=== PATIENT | male | born 1940 | race Caucasian/White ===

== ENCOUNTER → 2018-11-20 | Outpatient (CLI) | payer MEDICARE, OTHER ==
[~2018-11-20] MED LIST: ASPI-482 PO; CARV25TA2 PO; CRESTOR20 MG PO; LORA-781 PO; MULT-208 PO; OLME1TAB23 PO; OMEP20TA63 PO; ROPI1TAB PO; UBID100C26 PO
--- NOTE | 2018-11-20 12:43 | KCIC ---
MRI Lumbar Spine without contrast History: Low back pain, previous surgery Technique: Multiplanar, multi sequential noncontrast MR imaging was performed of the lumbar spine. Comparison: February 23, 2015 Findings: Lumbar vertebral body stature is maintained. There is now interbody fusion L4-5. There is again advanced degenerative disc disease L5-S1, L3-4 and L2-3 and to lesser degree at L1-2, also degree of degenerative disc disease T11-12 and T12-L1. There is similar minimal posterior subluxation L5 relative S1, L3 relative L4, L1 relative L2. There is again degenerative endplate change greatest at L3-4 and L5-S1, to lesser degree at L2-3. There is increased L5-S1 endplate edema in interval, no fluid in the intervertebral disc space. There is other minimal endplate edema L3-4 and L2-3. Conus terminates at T12-L1. There is some heterogeneity of marrow signal probably component of scattered hemangiomas and foci of fatty marrow replacement. T12-L1: Neural foramina and spinal canal are adequate. There is negligible posterior disc osteophyte complex and protrusion. L1-L2: There is disc osteophyte complex and bulge superimposed on the posteriorly subluxed L1 vertebral body margin, now shallow protrusion in the far left lateral recess. There is somewhat increased mild narrowing of the far left lateral recess, again mild narrowing of the far right lateral recess. Neural foramina are adequate. L2-L3: There is again disc osteophyte complex and bulge/protrusion. There is again mild narrowing of the far lateral recesses left greater than right, mild attenuation of the thecal sac more centrally from posterior epidural lipomatosis. There is facet hypertrophic change. Neural foramina are overall adequate. L3-L4: There is again left laminectomy. There is again broad posterior disc osteophyte complex, near the ventral surfaces descending L4 nerve roots bilaterally overall unchanged. There is again fairly severe narrowing of the left neural foramen by facet degenerative change and disc osteophyte complex with contact exiting left L3 nerve root in the neural foramen and extraforaminal region. Right neural foramen is adequate, disc osteophyte complex near the extraforaminal right L3 nerve root, no significant displacement.. L4-L5: There are again laminectomy defects greater on the right. There is minimal posterior osteophytic bridging. Spinal canal is overall adequate. There is [id number] narrowing of the left neural foramen by facet osteophytes as well as inferior osteophytes. There is also moderate narrowing of the right neural foramen. L5-S1: There is again broad disc osteophyte complex and probably partially calcified bulge/protrusion. There is indentation upon the ventral thecal sac greater in the left lateral recess, overall mild left lateral recess stenosis. There is right laminectomy defect. There is moderate narrowing of the left neural foramen. There is severe narrowing of the right neural foramen with contact exiting right L5 nerve root, narrowing due to disc osteophyte complex and facet degenerative change. Impression: 1. Comparing with the 2015 exam, there is now interbody fusion L4-5. There is again multilevel lumbar degenerative disc disease and spondylosis, L1-2 least affected. There is multilevel mild abnormal alignment. There is again mild left lateral recess stenosis L5-S1. Disc osteophyte complex is again near the ventral surfaces descending L4 nerve roots at L3-4, greater on the left. There is mild narrowing of the far lateral recesses greater on the left at L2-3, also mild narrowing of the far lateral recesses at L1-2. There is endplate edema greatest at L5-S1 likely reactive/degenerative in etiology. 2. There is multilevel lumbar neural foramina compromise as described, more significant narrowing on the right at L5-S1 and on the left at L3-4, to a somewhat lesser degree on the left at L4 L5 S1. Electronically signed by: Bakari Browne MD (11/20/2018 12:38 PM) [facility]
== END | disposition home or self-care (01) ==
LOC: KCIC MRI 10:28
PROVIDERS: ATTEND Family Medicine
DX: M51.36 Other intervertebral disc degeneration, lumbar region (principal); M47.816 Spondylosis without myelopathy or radiculopathy, lumbar region; M48.07 Spinal stenosis, lumbosacral region
CPT/HCPCS: 72148

== ENCOUNTER → 2018-12-30 | Outpatient (CLI) | payer MEDICARE ==
[~2018-12-30] MED LIST changes: +ACET500T68 PO; +CETI10TA16 PO; +DOCU-109 PO; +LISI-334 PO; +TRAM50TA PO
--- NOTE | 2018-12-30 17:36 | KCIC ---
MRI of the cervical spine without contrast 12/30/2018 CLINICAL HISTORY: Neck pain with unsteadiness. History of cervical spine surgery. TECHNIQUE: Unenhanced T1-weighted, T2-weighted and inversion recovery sagittal and gradient echo and T2-weighted axial images of the cervical spine were obtained. FINDINGS: Comparison study is dated 02/23/2015. Mild lateral curvature of the cervical spine is seen convex to the right. There is straightening of the normal cervical lordosis. The patient is post anterior discectomy and fusion using an anterior plate, bone screws and bone graft material at C3-4. Degenerative signal changes and loss of height are seen involving the remaining discs of the cervical spine. Degenerative signal changes are seen within the marrow surrounding these discs. No area of abnormal signal intensity is seen involving the cervical spinal cord. At the C2-3 disc space there is a mild generalized disc bulge. Degenerative changes are seen involving the uncovertebral and facet joints, right greater than left. These findings do not result in significant central spinal canal stenosis. Mild right neural foraminal stenosis is seen. The left neural foramen is patent. At the C3-4 level degenerative changes are seen involving the uncovertebral and facet joints, left greater than right. These findings do not result in significant central spinal canal stenosis. Mild to moderate left neural foraminal stenosis is seen. At the C4-5 disc space there is a mild generalized disc bulge. Degenerative changes are seen involving the uncovertebral and facet joints bilaterally. These findings do not result in significant central spinal canal or neural foraminal stenosis. At the C5-6 disc space there is a moderate generalized disc bulge. Degenerative changes are seen involving the uncovertebral and facet joints, left greater than right. These findings efface the anterior and posterior CSF resulting in mild central spinal canal stenosis without evidence of cord impingement. Moderate to severe left greater than right neural foraminal stenosis is seen. At the C6-7 disc space there is a mild generalized disc bulge. Degenerative changes are seen involving the uncovertebral and facet joints bilaterally. These findings do not result in significant central spinal canal or neural foraminal stenosis. At the C7-T1 disc space there is a minimal generalized disc bulge. Degenerative changes are seen involving the uncovertebral and facet joints bilaterally. These findings do not result in significant central spinal canal or neural foraminal stenosis. IMPRESSION: 1. Post anterior discectomy and fusion at C3-4. 2. Degenerative changes are seen throughout the cervical spine. These findings result in mild central spinal canal stenosis without evidence of cord impingement at C5-6. Mild right neural foraminal stenosis is seen at C2-3. Mild to moderate left neural foraminal stenosis is seen at C3-4. Moderate to severe left greater than right neural foraminal stenosis is seen at C5-6. Electronically signed by: Jonathan Castro MD (12/30/2018 5:34 PM) [facility]
== END | disposition home or self-care (01) ==
LOC: KCIC MRI 15:36
PROVIDERS: ATTEND Neurological Surgery
DX: M48.02 Spinal stenosis, cervical region (principal); Z88.5 Allergy status to narcotic agent; Z88.2 Allergy status to sulfonamides; Z88.8 Allergy status to other drugs, medicaments and biological substances
CPT/HCPCS: 72141

== ENCOUNTER → 2019-03-11 | Outpatient (CLI) | payer MEDICARE ==
--- NOTE | 2019-03-11 13:07 | EKG ---
[facility] [address] [place] [address] Test Date: 2019-03-11 Test Time: 13:06:47 Pat Name: CARMEN SÁNCHEZ Department: Room: Gender: M Taxicab Dispatcher: K : [id number] Requested By: MIGUEL SMITH Order Number: [id number] Reading MD: Jt Bronson MD Measurements Intervals [place] Rate: 51 P: 39 GA: 142 QRS: 40 QRSD: 88 T: 58 QT: 406 QTc: 376 Interpretive Statements SINUS RHYTHM Electronically Signed On 03-16-2019 13:18:12 CDT by Jt Bronson MD
[2019-03-11 13:32] LABS: BASO % 1 % (0-3); EOS # 0.3 x10^3/uL (0.0-0.7); EOS % 4 % (0-3); HEMATOCRIT 42.2 % (39.0-53.0); HEMOGLOBIN 14.6 g/dL (13.0-17.5); LYMPH # 1.7 x10^3/uL (1.0-4.8); LYMPH % 25 % (24-48); MEAN CORPUSCULAR HEMOGLOBIN 32 pg (25-35); MEAN CORPUSCULAR HGB CONC 35 g/dL (31-37); MEAN CORPUSCULAR VOLUME 92 fL (79-100); MONO # 0.5 x10^3/uL (0.0-1.1); MONO % 7 % (0-9); NEUT # 4.1 x10^3uL (1.8-7.7); NEUT % 63 % (31-73); PLATELET COUNT 186 x10^3/uL (140-400); RED CELL DISTRIBUTION WIDTH 13.5 % (11.5-14.5); WHITE BLOOD COUNT 6.6 x10^3/uL (4.0-11.0)
[2019-03-11 13:56] LABS: ALBUMIN/GLOBULIN RATIO 1.3 (1.0-1.7); CALCIUM 9.5 mg/dL (8.5-10.1); CREATININE 1.4 mg/dL (0.7-1.3); POTASSIUM 4.6 mmol/L (3.5-5.1); TOTAL BILIRUBIN 0.4 mg/dL (0.2-1.0); TOTAL PROTEIN 7.1 g/dL (6.4-8.2)
== END | disposition home or self-care (01) ==
LOC: SURGPAT 11:49
PROVIDERS: ATTEND Neurological Surgery
DX: Z01.818 Encounter for other preprocedural examination (principal); M48.062 Spinal stenosis, lumbar region with neurogenic claudication; M54.16 Radiculopathy, lumbar region
CPT/HCPCS: 36415; 80053; 85025; 87641; 93005

== ENCOUNTER 2019-03-20 08:17 | Observation (INO) | payer MEDICARE ==
--- NOTE | 2019-03-19 16:27 | PREOP HP ---
DATE OF SERVICE: 03/20/[address] Haris Hughes [address]ating for Dr. Arun Smith. HISTORY OF PRESENT ILLNESS: The patient is a pleasant 78-year-old who underwent an anterior cervical diskectomy and fusion in 2010 and then lumbar microsurgery in 2010. He also underwent decompression and fusion in 2005. His current problem is low back pain and pain, which radiates into his right buttock and posterior thigh. There is also an element of inferior right flank pain with this. The problem has been present for about one year. It began spontaneously. He rates his pain as a 7/10. Standing, walking and bending increase his pain. He says occasionally, he can lose his balance and stumble. He takes Tylenol for pain. He had physical therapy at [facility] in [place] without benefit. He does use a cane now. PAST MEDICAL HISTORY: Arthritis, hypertension, chest pain. PAST SURGICAL HISTORY: Right knee surgery, lumbar surgery 04/2006, an ACDF in 02/2011, lumbar surgery 07/2011, sinus surgery, cataract surgery in 2011. FAMILY HISTORY: Heart disease and [place], hypertension, aneurysm. SOCIAL HISTORY: Retired. . Nonsmoker. Does not drink alcohol. ALLERGIES: TO CODEINE, SULFA AND NIACIN. CURRENT MEDICATIONS: Crestor, aspirin, Coreg, coenzyme Q10, ropinirole, omeprazole, multivitamin. ALLERGIES: LISINOPRIL, TRAMADOL, TYLENOL. REVIEW OF SYSTEMS: A 12-point review of systems was obtained and is noncontributory except that mentioned above. PHYSICAL EXAMINATION: NEUROSURGERY EXAMINATION: GENERAL APPEARANCE: Alert, pleasant, no acute distress. HEAD: Normocephalic and atraumatic. SKIN: Warm and dry. Well-healed lumbar incision. MUSCULOSKELETAL: Lumbar paraspinal muscle bulk is normal, restricted range of motion of the lumbar spine, [id number] tenderness of lower lumbar spine with palpation, normal range of motion of the lower extremities bilaterally. EXTREMITIES: No clubbing, cyanosis or edema. NEUROLOGIC: Alert and oriented x 3, normal recent and remote memory, strength 5/5 in bilateral lower extremities, sensory was intact to light touch in bilateral lower extremities, reflexes were present and symmetric in lower extremities bilaterally, negative straight leg raising bilaterally, ambulates with a cane. IMAGING: Reviewed. I reviewed a lumbar MRI scan from 11/2018. On that study, there is interbody fusion at L4-L5. There are laminectomy defects at L3-L4, L4-L5 and L5-S1. At L5-S1 on the right, there is severe foraminal narrowing with evidence of compression on the right L5 root due to primarily disk osteophyte complex and facet hypertrophy. ASSESSMENT: 1. Radiculopathy, lumbosacral region. 2. Spinal stenosis, cervical region. 3. Spinal stenosis, lumbar region with neurogenic claudication. PLAN: With regard to his lumbar radiculopathy on the right, I feel it is most likely due to compression of the L5 root in the foramen at L5-S1. He is reporting increasing unsteadiness and I did review his MRI scan from 2015 of the cervical spine, which there was an area of stenosis below his previous cervical fusion. My concern is that this problem may have progressed and he is developing a cervical myelopathy. For that reason, a new cervical MRI scan should be performed. He will contact us when he would like to go forward with his lumbar surgery. We will make the arrangements. ARUN SMITH MD DR: JACOB/lilia JOB#: [id number] / [id number]
[~2019-03-20] VITALS: Ht 172.7 cm; Wt 74.8 kg
[~2019-03-20 08:17] MED LIST changes: +BACITRACIN 50,000 UNIT in IV NORMAL SALINE 1000ML BAG 1,000 ML IRR ONE; +BUPIVAC MPF-EPI 0.5%-1:200000 30 ML VIAL. ONE; -DOCU-109 PO; +GELATIN SPONGE SIZE 12-7MM SPONGE. ONE; +HYDROmorphone 2 MG/ML VIAL IV PRN; +IV RINGERS,LACTATED 1000ML 1,000 ML IV SCH; +KETOROLAC 60 MG/2 ML INJ FOR OR. ONE; +LIDOCAINE 1% PF 2 ML VIAL. ID PRN; +MORPHINE SULFATE 2 MG/ML VIAL. IV PRN; +ONDANSETRON PF 4 MG/2 ML VIAL. IV PRN; +PROCHLORPERAZINE 10 MG/2 ML VIAL. IV PRN; +THROMBIN TOPICAL 20,000 UNIT SPRAY.SYRN KIT TP ONE; +fentaNYL PF VIAL 100 MCG/2 ML VIAL IV PRN
[2019-03-20] MEDS ORDERED: PROPOFOL 100 ML IV ONE (08:22)
[2019-03-20] MEDS ORDERED: REMIFENTANIL 2 MG VIAL. IV ONE (09:27)
[2019-03-20] MEDS ORDERED: fentaNYL PF VIAL 100 MCG/2 ML VIAL ONE ×2 (09:27→14:14)
[2019-03-20] MEDS ORDERED: DESFLURANE > 120 MINUTES IH ONE (09:27)
[2019-03-20] MEDS ORDERED: GLYCOPYRROLATE 1 MG/5 ML VIAL. ONE (09:27)
[2019-03-20] MEDS ORDERED: NEOSTIGMINE METHYLSULFATE 5 MG/5 ML SYRINGE. ONE (09:27)
[2019-03-20] MEDS ORDERED: ONDANSETRON PF 4 MG/2 ML VIAL. ONE (09:28)
[2019-03-20] MEDS ORDERED: DEXAMETHASONE SOD PHOS 4 MG/ML VIAL ONE (09:28)
[2019-03-20] MEDS ORDERED: PROPOFOL 20 ML IV ONE (09:28)
[2019-03-20] MEDS ORDERED: LIDOCAINE 2% PF 5 ML VIAL. ONE (09:28)
[2019-03-20] MEDS ORDERED: ROCURONIUM 50 MG/5 ML VIAL. ONE (09:28)
[2019-03-20] MEDS ORDERED: PHENYLEPHRINE 10 MG/ML VIAL. ONE (09:36)
[2019-03-20] MEDS ORDERED: DOCU-109 PO (11:21)
--- NOTE | 2019-03-20 11:23 | DISCH ---
DISCHARGE INSTRUCTIONS Condition on Discharge Condition on Discharge: Stable Activity After Discharge Activity Instructions for Disc: Activity as tolerated, Avoid exertion Other activity instructions: no driving for a week Bathing Instructions: Shower-keep dressing dry Lifting Instructions after Dis: No heavy lifting, No pulling or pushing Diet after Discharge Additional Diet Restrictions: resume home diet Wound Incision Care Wound/Incision Care: Ice to area for comfort Other wound/incision instructi: may remove dressing in 48 hours if dry then may shower, no soaking Contacting the after DC Call your doctor for: Concerns you may have Follow-Up Follow up with: Dr. Smith's nurse in 2 weeks [phone] MIGUEL SMITH MD Mar 20, 2019 11:23
--- NOTE | 2019-03-20 14:46 | OP ---
DATE OF SURGERY: 03/20/2019 PREOPERATIVE DIAGNOSES: Foraminal narrowing with severe lumbar radiculopathy, L5-S1, right. POSTOPERATIVE DIAGNOSES: Foraminal narrowing with severe lumbar radiculopathy, L5-S1, right. OPERATION PERFORMED: Hemilaminotomy and transfacet exposure to decompress the right L5 root. OPERARTIVE FINDINGS: There was hypertrophic facet markedly impinging and compressing the right L5 root just as it rounded the inferior aspect of the pedicle. The operation was done with EMG monitoring, SSEP monitoring, fluoroscopy and microscopic dissection. SURGEON: Arun Smith M.D. RN MATERNAL CHILD: KAILEE Flores, assisted with the surgery. She assisted with the exposure, the microdecompression as well as the closure. OPERATIVE INDICATIONS: The patient is a pleasant 78-year-old man who has undergone lumbar surgeries in the past and has done reasonably well. He has developed severe right buttock and posterolateral thigh pain. On imaging studies, there was severe foraminal narrowing on the right at L5-S1. This was due to disc osteophyte complex inferiorly as well as hypertrophic ligament and facet encroaching down on the root and I recommended lumbar microsurgery. I spoke with him about the surgery, the risks, technique and expected postoperative course and he wished to go ahead. DESCRIPTION OF PROCEDURE: Following general endotracheal anesthesia, the patient was positioned prone on the Johan frame. Lumbar region was prepped and draped in the standard fashion. ZO hose and AV impulse boots were applied for DVT prophylaxis. The microscope was draped. Fluoroscopy was draped in the field. Monitoring was established. Ancef 2 grams was given less than 1 hour prior to initiation of the surgery. Using fluoroscopic guidance, a midline incision was made directly over the L5-S1 interspace and I dissected down to the skin and subcutaneous tissue. I reflected the paraspinal muscles pointing back considerable scar. My exposure clearly went from the pedicle of L5 through the pedicle of S1 and I used the high speed air drill, again with a microscope using microscopic technique, burred down a generous hemilaminotomy. I then worked through considerable thickened bone and drilled down along the inferior aspect of the pedicle of L5 on the right and worked down to visualize the takeoff of the L5 root and then drilled the bone over this, peeling away scar and the dura from the underlying bone and as I worked down, I was able to clearly visualize the L5 root. I then thinned the bone as it rounded the pedicle and I moved laterally and then trimmed this away very carefully with 2 mm, then followed by the 2.5 mm Kerrison's and well decompressed the root, which was markedly compressed just at its origin. As I worked, the region became very well decompressed. I irrigated copiously, explored carefully, the root was quite free. I did work slightly inferiorly and follow the origin of the L5 root as well and I assured myself that the region was well decompressed. I then laid Gelfoam over the exposed dural surface. I removed the retractor, obtained hemostasis in the muscle copiously, irrigated and closed the wound in layers with absorbable suture. The skin was closed with a 4-0 subcuticular stitch. The operation went very well. I was quite pleased with the surgery. ARUN SMITH MD DR: JACOB/lilia JOB#: [id number] / [id number] KATYA
--- NOTE | 2019-03-20 16:45 | NUR ---
Patient arrived on unit via wheelchair by transport to room 440. Oriented patient to room and call light and started admission.
[2019-03-20 17:00] VITALS: BP 199/81
[2019-03-20] MEDS ORDERED: 0.9 % SODIUM CHLORIDE 10 ML DISP.SYRIN. IV PRN (17:00)
[2019-03-20] MEDS ORDERED: CARVEDILOL 6.25 MG TABLET. PO SCH (17:00)
[2019-03-20] MEDS ORDERED: traMADol 50 MG TABLET PO PRN (17:00)
[2019-03-20] MEDS ORDERED: NALOXONE 0.4 MG/ML VIAL. IV PRN (17:00)
[2019-03-20] MEDS ORDERED: CALCIUM CARBONATE 500 MG TAB.CHEW PO PRN (17:00)
[2019-03-20] MEDS ORDERED: ONDANSETRON PF 4 MG/2 ML VIAL. IV PRN (17:00)
[2019-03-20] MEDS ORDERED: diphenhydrAMINE HCL 25 MG CAPSULE PO PRN (17:00)
[2019-03-20] MEDS ORDERED: ACETAMINOPHEN 325 MG TABLET. PO PRN (17:00)
[2019-03-20] MEDS ORDERED: MAG HYDROX/ALUMINUM HYD/SIMETH 30 ML ORAL.SUSP PO PRN (17:00)
--- NOTE | 2019-03-20 18:08 | NUR ---
PVR was 485mL, Bladder scan done by Dulce WALTERS. Patient advised to hydrate more and try again later. Patient verbalized understanding.
[2019-03-20 19:35] VITALS: BP 182/62
--- NOTE | 2019-03-20 19:45 | NUR ---
Discharge Note: CARMEN SÁNCHEZ Discharge instructions and discharge home medications reviewed with Patient and a copy given. All questions have been answered and understanding verbalized. The following instructions and handouts were given: Discontinued lines and drains: Peripheral IV intact. Patient discharged to Home or Self Care with daughter via Wheelchair
[2019-03-20] MEDS ORDERED: ATORVASTATIN CALCIUM 40 MG TABLET. PO SCH (21:00)
[2019-03-20] MEDS ORDERED: ACETAMINOPHEN 500 MG TABLET PO SCH (21:00)
[2019-03-20] MEDS ORDERED: LISINOPRIL 20 MG TABLET PO SCH (21:00)
[2019-03-20] MEDS ORDERED: rOPINIRole 1 MG TABLET. PO SCH (21:00)
[2019-03-20] MEDS ORDERED: UBIDECARENONE 600 MG PO SCH (21:00)
[2019-03-20] MEDS ORDERED: DOCUSATE SODIUM 100 MG CAPSULE. PO SCH ×2 (21:00)
[2019-03-21] MEDS ORDERED: PANTOPRAZOLE 40 MG TABLET.DR. PO SCH (07:30)
[2019-03-21] MEDS ORDERED: CETIRIZINE HCL 10 MG TABLET. PO SCH (09:00)
[2019-03-21] MEDS ORDERED: ASPIRIN ENTERIC COATED 81 MG TABLET.DR. PO SCH (09:00)
[2019-03-21] MEDS ORDERED: MULTIVITAMIN with MINERAL TABLET. PO SCH (09:00)
--- NOTE | 2019-03-23 15:06 | PATHOLOGY ---
[facility] Accession Number: [id number] . 01 Material submitted: . vertebral column - LUMBAR DECOMPRESSION . 01 Clinical history: . Lumbar stenosis and neurogenic claudication, radiculopathy . 02 Diagnosis: Segments of fibrocartilaginous tissue and bone, lumbar decompression: - Degenerative changes of fibrocartilaginous tissue. (JPM:tamara; 03/23/2019) QMS/03/23/2019 . 02 Comment: There is no evidence of an acute inflammatory process or malignancy. (JPM:tamara; 03/23/2019) . 02 Electronically signed: . Meir Ordoñez MD, Pathologist NPI- [id number] . 01 Gross description: . Received in formalin labeled "Avelino Stokes, lumbar decompression," are several pieces of glistening, fibrous tissue measuring 2.4 x 0.6 x 0.3 cm in aggregate dimensions, containing small fragments of possible bone. The tissue is filtered and submitted entirely in cassette A1, following decalcification. (TSD; 03/20/2019) TOB/TOB . 02 Pathologist provided ICD-10: M51.36 . 02 CPT . 336224, [id number] Specimen Comment: A courtesy copy of this report has been sent to Specimen Comment: [phone], . Specimen Comment: Report sent to / DR LAU Performed at: 01 [facility] [address], [place] [id number] MD Marquez Noland MD Phone: [phone] Performed at: 02 [facility] [address] [place], [place] [id number] MD Meir Ordoñez MD Phone: [phone]
== END 2019-03-20 20:30 | disposition home or self-care (01) ==
LOC: SURG 08:17 → 4 NORTH 16:28
PROVIDERS: ADMIT Neurological Surgery; ATTEND Neurological Surgery
DX: M54.17 Radiculopathy, lumbosacral region (principal); M48.02 Spinal stenosis, cervical region; M48.062 Spinal stenosis, lumbar region with neurogenic claudication; M19.90 Unspecified osteoarthritis, unspecified site; I10 Essential (primary) hypertension; R07.9 Chest pain, unspecified; Z82.49 Family history of ischemic heart disease and other diseases of the circulatory system
CPT/HCPCS: 63030; 76000; 97162; A7015; G0378; G0379; J1100; J1885; J2001; J2405; J2704; J2710; J3010; J3490; J7030; J7120

== ENCOUNTER → 2021-04-10 | Outpatient (CLI) | payer MEDICARE ==
[~2021-04-10] MED LIST changes: +AMLO-187 PO; -BACITRACIN 50,000 UNIT in IV NORMAL SALINE 1000ML BAG 1,000 ML IRR ONE; -BUPIVAC MPF-EPI 0.5%-1:200000 30 ML VIAL. ONE; +CHLO25TA10 PO; +CHOL500050 PO; +DOCU-109 PO; -GELATIN SPONGE SIZE 12-7MM SPONGE. ONE; +HYDR-2761 PO; -HYDROmorphone 2 MG/ML VIAL IV PRN; +ISOS30TA68 PO; -IV RINGERS,LACTATED 1000ML 1,000 ML IV SCH; -KETOROLAC 60 MG/2 ML INJ FOR OR. ONE; -LIDOCAINE 1% PF 2 ML VIAL. ID PRN; -LISI-334 PO; +LISI20TA18 PO; -MORPHINE SULFATE 2 MG/ML VIAL. IV PRN; +NITR0.4T22 SL; +OMEG100020 PO; -ONDANSETRON PF 4 MG/2 ML VIAL. IV PRN; +PANT40TA77 PO; -PROCHLORPERAZINE 10 MG/2 ML VIAL. IV PRN; +ROPI1TAB4 PO; -THROMBIN TOPICAL 20,000 UNIT SPRAY.SYRN KIT TP ONE; +VENTOLIN HFA18 GM INH; -fentaNYL PF VIAL 100 MCG/2 ML VIAL IV PRN
[2021-04-10 09:23] LABS: BASO # 0.1 x10^3/uL (0.0-0.2); BASO % 1 % (0-3); EOS # 0.7 x10^3/uL (0.0-0.7); EOS % 11 % (0-3); HEMATOCRIT 36.1 % (39.0-53.0); HEMOGLOBIN 12.1 g/dL (13.0-17.5); LYMPH # 1.9 x10^3/uL (1.0-4.8); LYMPH % 32 % (24-48); MEAN CORPUSCULAR HEMOGLOBIN 31 pg (25-35); MEAN CORPUSCULAR HGB CONC 34 g/dL (31-37); MEAN CORPUSCULAR VOLUME 93 fL (79-100); MONO # 0.4 x10^3/uL (0.0-1.1); MONO % 7 % (0-9); NEUT # 2.8 x10^3/uL (1.8-7.7); NEUT % 48 % (31-73); PLATELET COUNT 178 x10^3/uL (140-400); RED BLOOD COUNT 3.88 x10^6/uL (4.30-5.70); RED CELL DISTRIBUTION WIDTH 13.7 % (11.5-14.5); WHITE BLOOD COUNT 5.9 x10^3/uL (4.0-11.0)
[2021-04-10 09:38] LABS: ALBUMIN 4.1 g/dL (3.4-5.0); CREATININE 1.9 mg/dL (0.7-1.3); GFR 34.3; POTASSIUM 4.7 mmol/L (3.5-5.1)
[2021-04-10 09:39] LABS: PROTHROMBIN TIME PATIENT 13.1 SEC (11.7-14.0)
--- NOTE | 2021-04-10 13:01 | RAD ---
EXAM: Chest, 2 views. HISTORY: Hypertension. Preoperative evaluation. COMPARISON: None. FINDINGS: 2 views of the chest are obtained. There is no infiltrate, pleural effusion or pneumothorax . There is suspected lingular atelectasis or scarring. IMPRESSION: No acute pulmonary finding. Electronically signed by: Karla Robertson MD (04/10/2021 12:59 PM) [id number]
[2021-04-10 22:08] LABS: HEMOGLOBIN A1C 5.9 % (4.8-5.6)
== END ==
LOC: EDSTATUS 08:15 → SURGPAT 13:16
PROVIDERS: ATTEND Orthopaedic Surgery
DX: Z01.818 Encounter for other preprocedural examination (principal); M17.11 Unilateral primary osteoarthritis, right knee; Z96.641 Presence of right artificial hip joint
CPT/HCPCS: 36415; 71046; 80048; 82040; 82306; 83036; 85025; 85610; 85651; 85730; 87641

== ENCOUNTER 2021-04-25 07:59 | Observation (INO) | payer MEDICARE ==
[~2021-04-25] VITALS: Ht 172.7 cm; Wt 74.5 kg
[2021-04-25] VITALS (7 sets, daily range): BP systolic 121–154; BP diastolic 60–70
[~2021-04-25 07:59] MED LIST changes: +ACETAMINOPHEN 500 MG TABLET PO PRN; +HYDROmorphone 2 MG/ML VIAL IVP PRN; +IV RINGERS,LACTATED 1000ML 1,000 ML IV SCH; +KETOROLAC 30MG VIAL 30 MG, ROPIVacaine 0.5% PF 60 ML, EPINEPHrine 0.5 MG in IV NORMAL S... INT ART ONE; +MORPHINE SULFATE 2 MG/ML INJ. IVP PRN; +PROCHLORPERAZINE 10 MG/2 ML VIAL. IVP PRN; +ceFAZolin SODIUM IV Push 1 GM VIAL. IVP PRN; +fentaNYL PF VIAL 100 MCG/2 ML VIAL IVP PRN
[2021-04-25] MEDS ORDERED: DEXAMETHASONE SOD PHOS 4 MG/ML VIAL ONE (09:08)
[2021-04-25] MEDS ORDERED: PROPOFOL 10 MG/ML (20ML) VIAL. IV ONE (09:08)
[2021-04-25] MEDS ORDERED: LIDOCAINE 2% PF 5 ML VIAL. ONE (09:08)
[2021-04-25] MEDS ORDERED: ONDANSETRON PF 4 MG/2 ML VIAL. ONE (09:08)
[2021-04-25] MEDS ORDERED: fentaNYL PF VIAL 100 MCG/2 ML VIAL ONE ×4 (09:09→12:46)
--- NOTE | 2021-04-25 09:24 | PREOP HP ---
DATE OF SERVICE: 04/25/2021 PREOPERATIVE HISTORY AND PHYSICAL CHIEF COMPLAINT: Right knee pain. HISTORY OF PRESENT ILLNESS: The patient has had longstanding bilateral knee pain in both knees, right worse than left, and had previously failed nonoperative management including corticosteroid and viscosupplementation injections, weight loss, activity modification, and even irrigation technician bracing. PAST MEDICAL HISTORY: Significant for hypertension, hypercholesterolemia, his knee pain and back pain. PAST SURGICAL HISTORY: Back fusion, neck surgery and sinus surgeries. FAMILY HISTORY: Heart disease in his father who is , aneurysm in his mother who is , alive and healthy sister, his son with multiple myeloma - not . SOCIAL HISTORY: He is a former smoker, quit over 10 years ago. Denies alcohol or drug use. MEDICATIONS: List is reviewed. ALLERGIES: HE HAS ALLERGIES TO SULFA, CODEINE AND NIACIN. REVIEW OF SYSTEMS: Denies any chest pain, shortness of breath, focal weakness, numbness, tingling, recent febrile illness or other constitutional symptoms. PHYSICAL EXAMINATION: VITAL SIGNS: Per admission sheet. HEENT: Atraumatic, normocephalic. HEART: Regular rate and rhythm. LUNGS: Clear to auscultation bilaterally. ABDOMEN: Benign. EXTREMITIES: Examination of the right knee reveals moderate varus compared to normal alignment of the contralateral left knee. He has medial joint line tenderness. No gross ligamentous laxity, only medial collateral ligament pseudolaxity. Moderate patellofemoral crepitus with good tracking bilaterally. Normal alignment, stability, bilateral hips and ankles. LABORATORY AND DIAGNOSTIC DATA: X-rays show loss of medial joint line with varus on the right, only slight narrowing of the medial joint line on the left knee with tricompartmental degenerative changes, severe on the right, mild on the left. IMPRESSION: Primary osteoarthritis of right knee with right knee pain. TREATMENT PLAN: He has unfortunately failed nonoperative management including injections, irrigation technician bracing, activity modification, pain medications and weight loss among others. We talked through risks, benefits, postoperative course of the procedure including the possibility of infection, continued pain, premature wear, loosening, nerve or blood vessel damage, medical or other anesthetic complications among others. All his questions were answered and he wishes to proceed with surgical evaluation and treatment, which will include [facility] observation to follow. TALA/RAJAT DR: Talia TID: [id number]
[2021-04-25 09:49] LABS: PROTHROMBIN TIME PATIENT 14.7 SEC (11.7-14.0)
[2021-04-25] MEDS ORDERED: TRANEXAMIC ACID in NS IVPB 50 ML ONE (10:11)
[2021-04-25] MEDS ORDERED: VANCOMYCIN 1 GM VIAL. ONE (10:11)
[2021-04-25] MEDS ORDERED: SEVOFLURANE > 120 MINUTES. IH ONE (10:35)
[2021-04-25] MEDS ORDERED: KETOROLAC 30 MG/ML VIAL. ONE (10:52)
[2021-04-25] MEDS ORDERED: PROCHLORPERAZINE 10 MG/2 ML VIAL. ONE (12:18)
[2021-04-25] MEDS: fentaNYL PF VIAL 100 MCG/2 ML VIAL IVP PRN ×4 (12:19→13:07)
[2021-04-25] MEDS ORDERED: fentaNYL PF VIAL 100 MCG/2 ML VIAL IVP PRN ×3 (12:30→13:00)
[2021-04-25] MEDS ORDERED: DEXTROSE 50% 25 GM / 50ML DISP.SYRIN. IV PRN (12:30)
[2021-04-25] MEDS ORDERED: ZOLPIDEM 5 MG TABLET. PO PRN (12:30)
[2021-04-25] MEDS ORDERED: PROCHLORPERAZINE 5 MG TABLET. PO PRN (12:30)
[2021-04-25] MEDS ORDERED: 0.9 % SODIUM CHLORIDE 10 ML DISP.SYRIN. IV PRN (12:30)
[2021-04-25] MEDS ORDERED: CALCIUM CARBONATE 500 MG TAB.CHEW PO PRN (12:30)
[2021-04-25] MEDS ORDERED: MORPHINE SULFATE 2 MG/ML INJ. IVP PRN (12:30)
[2021-04-25] MEDS ORDERED: diphenhydrAMINE 50 MG/ML VIAL IVP PRN (12:30)
[2021-04-25] MEDS ORDERED: MORPHINE SULFATE 2 MG/ML INJ. ONE ×2 (12:52→13:13)
--- NOTE | 2021-04-25 12:52 | RAD ---
EXAM: Right knee, 2 views. HISTORY: Arthroplasty. COMPARISON: None. FINDINGS: 2 views of the right knee are obtained. There is a right knee arthroplasty in expected posi tion. There is joint fluid and soft tissue gas due to recent surgery. There is incidental enthesopath y along the superior patella and anterior tibial tubercle. IMPRESSION: Right knee arthroplasty in expected position, with surrounding soft tissue changes due to recent surgery. Electronically signed by: Karla Robertson MD (04/25/2021 12:49 PM) [id number]
[2021-04-25] MEDS: MORPHINE SULFATE 2 MG/ML INJ. IVP PRN ×4 (12:54→13:24)
[2021-04-25] MEDS ORDERED: IV RINGERS,LACTATED 1000ML 1,000 ML IV SCH (13:00)
[2021-04-25] MEDS ORDERED: PROCHLORPERAZINE 10 MG/2 ML VIAL. IVP PRN (13:00)
[2021-04-25] MEDS ORDERED: HYDROmorphone 2 MG/ML VIAL ONE (13:38)
[2021-04-25] MEDS: HYDROmorphone 2 MG/ML VIAL IVP PRN ×4 (13:41→15:12)
[2021-04-25] MEDS: SENNOSIDES/DOCUSATE 8.6/50MG TABLET. PO SCH (14:00)
[2021-04-25] MEDS ORDERED: WARFARIN 7.5 MG TABLET. PO ONE (16:00)
[2021-04-25] MEDS: FERROUS SULFATE 325 MG TABLET. PO SCH (17:06)
[2021-04-25] MEDS: ceFAZolin SODIUM IV Push 1 GM VIAL. IVP SCH ×2 (17:06→21:47)
[2021-04-25] MEDS: IV NORMAL SALINE 1000ML BAG 1,000 ML IV SCH ×2 (17:15→22:00)
[2021-04-25] MEDS: ONDANSETRON PF 4 MG/2 ML VIAL. IVP SCH (17:22)
[2021-04-25] MEDS: ONDANSETRON ODT 4 MG TAB.RAPDIS. PO SCH (17:23)
--- NOTE | 2021-04-25 18:35 | NUR ---
Arrived to unit by bed from PACU. Alert and oriented x's 4. No c/o at this time. Dressing on right leg is d/i with MAX. Right leg elevated on pillow and ice pack. IVF's intact and infusing. O2 at 2l per n/c. Side rails up x's 2 with call light in reach. Cont. monitor.
[2021-04-25] MEDS ORDERED: NITROGLYCERIN SUBLINGUAL 0.4 MG BOTTLE OF 25. SL PRN (19:45)
[2021-04-25] MEDS: oxyCODONE IR 5 MG TABLET PO PRN (21:48)
[2021-04-25] MEDS: rOPINIRole 1 MG TABLET. PO SCH (21:48)
[2021-04-25] MEDS: CETIRIZINE HCL 10 MG TABLET. PO SCH (21:49)
[2021-04-25] MEDS: CARVEDILOL 6.25 MG TABLET. PO SCH (21:50)
[2021-04-25] MEDS: LISINOPRIL 20 MG TABLET PO SCH (21:51)
[2021-04-25] MEDS: ATORVASTATIN CALCIUM 40 MG TABLET. PO SCH (21:51)
--- NOTE | 2021-04-25 23:40 | PDOC4 ---
Operative Note Operative Note Date of surgery: 03/26/2021 Preoperative diagnosis: Degenerative right knee Postoperative diagnosis: Same Operative procedure: Right total knee arthroplasty Surgeon: Jd Assist: Avelino morse Anesthesia: General Estimated blood loss: 25 cc Complications: None Specimens: Cartilage surfaces to pathology Operative indications: Please see my dictated preoperative history and physical for detailed operative indications and note that we had reviewed preoperatively risks benefits postoperative course of the surgery including the possibility of infection continued pain nerve or blood vessel damage premature wear or loosening instability medical or other anesthetic complications among others and he agrees to proceed with surgical evaluation and treatment having given informed consent Operative text: Patient was identified procedure verified patient placed in the supine position on the operating table. After adequate amounts of general anesthesia were administered the right lower extremity was prepped and draped in standard sterile fashion with a thigh tourniquet and after timeout was performed patient procedure identified and verified the right lower extremity was exsanguinated by Esmarch bandage tourniquet inflated to 300 mmHg and a midline incision was made followed by a medial parapatellar approach fat pad was excised and patella everted and the distal femur drilled to accommodate the intramedullary cutting guide which was set at 5 degrees with 2 mm additional distal cut due to flexion contracture. Menisci and cruciate ligaments were excised and a tibial cut was made using the extra medullary cutting guide aligned with the second toe and alignment verified with a spacer and drop yesenia. Tibia was prepared with a size E persona trial component. Femur was sized at a size 6 and AP lateral chamfer cuts were made and ligament balancing carried out. A medial release was carried out and I did achieve excellent stability with a 13 mm trial medial congruent articular surface spacer. Femoral lug holes were drilled and patella was not resurfaced. He had excellent tracking. Trial components were removed thorough irrigation carried out with normal saline solution and the following persona components were cemented in place with polymethylmethacrylate cement: A size E persona natural tibial component and size 6 standard right persona cruciate retaining femur. Excess cement was removed with a curette and a vitamin E medial congruent 13 mm height articular spacer was locked into place and the knee held into extension until cement was dry. Irrigation again carried out with dilute Betadine lavage and normal saline solution and 1 g vancomycin was placed in the knee joint. Retinaculum closed with #1 PDS suture in a running fashion subcutaneous closure with buried Vicryl sutures subcuticular closure with 3-0 strata fix Monocryl. A hermann dressing was placed. Toes were noted to be warm pink following deflation of the tourniquet patient was returned to recovery room in stable condition having tolerated procedure well. Avelino morse was present for the procedure and assisted in patient positioning prepping draping retraction closure dressings. BRITTA FLANAGAN MD Apr 25, 2021 23:40
[2021-04-26 02:41] VITALS: BP 148/73
[2021-04-26] MEDS: ceFAZolin SODIUM IV Push 1 GM VIAL. IVP SCH (04:46)
[2021-04-26 05:31] LABS: PROTHROMBIN TIME PATIENT 16.8 SEC (11.7-14.0)
[2021-04-26] MEDS ORDERED: MAGNESIUM HYDROXIDE 2,400 MG/30 ML ORAL.SUSP. PO PRN (06:00)
[2021-04-26 06:07] VITALS: BP 136/59
[2021-04-26] MEDS: PANTOPRAZOLE 40 MG TABLET.DR. PO SCH (06:08)
[2021-04-26] MEDS: traMADol 50 MG TABLET PO SCH ×4 (06:09→17:20)
[2021-04-26] MEDS: ONDANSETRON PF 4 MG/2 ML VIAL. IVP SCH ×3 (06:09→12:00)
[2021-04-26] MEDS: ONDANSETRON ODT 4 MG TAB.RAPDIS. PO SCH ×3 (06:09→12:00)
[2021-04-26] MEDS: GABAPENTIN 100 MG CAPSULE. PO SCH ×2 (06:09→16:07)
[2021-04-26] MEDS: CHOLECALCIFEROL (VITAMIN D3) 1,000 UNIT TABLET PO SCH (08:12)
[2021-04-26] MEDS: MELOXICAM 7.5 MG TABLET PO SCH (08:12)
[2021-04-26] MEDS: SENNOSIDES/DOCUSATE 8.6/50MG TABLET. PO SCH ×2 (08:12→08:32)
[2021-04-26] MEDS: FERROUS SULFATE 325 MG TABLET. PO SCH ×2 (08:12→16:07)
[2021-04-26] MEDS: ISOSORBIDE MONONITRATE ER 30 MG TAB.ER.24H PO SCH (08:13)
[2021-04-26] MEDS: ACETAMINOPHEN 500 MG TABLET PO SCH ×3 (08:14→21:00)
[2021-04-26] MEDS: ASPIRIN ENTERIC COATED 81 MG TABLET.DR. PO SCH (08:14)
[2021-04-26] MEDS: CARVEDILOL 6.25 MG TABLET. PO SCH ×2 (08:14→17:22)
[2021-04-26] MEDS: LISINOPRIL 20 MG TABLET PO SCH ×2 (08:21→21:01)
[2021-04-26] MEDS: rOPINIRole 1 MG TABLET. PO SCH ×2 (08:25→21:00)
--- NOTE | 2021-04-26 08:47 | PDOC ---
PROGRESS NOTES Date of Service DATE: 04/26/21 TIME: 08:44 Subjective Subjective Problems overnight: Pain well controlled this morning no other complaints really has not gotten up and around very much except to the bathroom Objective Vital Signs Vital Signs Date Time Temp Pulse Resp B/P (MAP) Pulse Ox O2 Delivery O2 Flow Rate FiO2 04/26/21 08:21 77 157/71 04/26/21 06:39 18 96 Room Air 04/26/21 06:07 98.1 98.1 04/25/21 20:10 2.0 Physical Exam Right knee Yolanda dressing intact distal neurovascular status intact minimal swelling good early range of motion excellent ligamentous stability and tracking Labs Laboratory Tests Test 04/25/21 09:05 04/26/21 03:35 Prothrombin Time 14.7 SEC (11.7-14.0) 16.8 SEC (11.7-14.0) Prothromb Time International Ratio 1.2 (0.8-1.1) 1.4 (0.8-1.1) Activated Partial Thromboplast Time 30 SEC (24-38) Laboratory Tests Test 04/25/21 09:05 04/26/21 03:35 Prothrombin Time 14.7 SEC (11.7-14.0) 16.8 SEC (11.7-14.0) Prothromb Time International Ratio 1.2 (0.8-1.1) 1.4 (0.8-1.1) Activated Partial Thromboplast Time 30 SEC (24-38) Imaging Postop x-rays show excellent alignment total knee arthroplasty Assessment Assessment POD#1 right total knee arthroplasty Plan Plan of Care Mobilize with physical therapy standard total knee protocol Warfarin per [facility] anticoagulation clinic Proceeding slowly with blood pressure medications as he is not hypertensive Likely home health on discharge initially Justicifation of Admission Dx: Justifications for Admission: Justification of Admission Dx: N/A BRITTA FLANAGAN MD Apr 26, 2021 08:47
--- NOTE | 2021-04-26 10:02 | NUR ---
Pharmacy Warfarin Dosing Note S:Pharmacy consulted to assist with anticoagulation therapy started 04/25/21 with target INR: 1.6 - 2.5 O:CARMEN SÁNCHEZ is a 80 year old M with a right TKA LABS: Last INR: 1.4 Last dose of 7.5 mg given on 04/25/21 at 1715 Vitamin K given: N Ongoing Drug Interactions: ASA, meloxicam A:INR of 1.4 is below desired range. Target range for this patient is: 1.6 - 2.5 P: Warfarin dose: 3 mg Today at 1600 Bridge Therapy: None Next INR due 04/27/21 Pharmacy anticoagulation service will continue to follow. HEMALATHA AL [facility], 04/26/21 1002
[2021-04-26] MEDS: CHLORTHALIDONE 25 MG TABLET. PO SCH (10:57)
[2021-04-26 11:05] VITALS: BP 133/60
[2021-04-26 11:25] LABS: HEMATOCRIT 32.6 % (39.0-53.0); HEMOGLOBIN 10.8 g/dL (13.0-17.5)
[2021-04-26] MEDS ORDERED: ONDANSETRON ODT 4 MG TAB.RAPDIS. PO PRN (12:00)
[2021-04-26] MEDS ORDERED: ONDANSETRON PF 4 MG/2 ML VIAL. IVP PRN (12:00)
[2021-04-26] MEDS ORDERED: WARFARIN 3 MG TABLET. PO ONE (16:00)
[2021-04-26] MEDS ORDERED: BISACODYL 10 MG SUPP.RECT. PR PRN (16:00)
--- NOTE | 2021-04-26 16:12 | NUR ---
SS following for discharge planning. SS reviewed pt chart. Pt is from home with spouse and is currently on room air. Pt had right total knee surgery on 04/25/2021. PT/OT recommending walker for home and home with home healthcare. Pt met with nurse navigator and pt is agreeable to [facility], ; fax [phone]. Referral sent to [facility]. Script needed for walker. SS will continue to follow for discharge planning.
[2021-04-26 18:30] VITALS: BP_SYST 118; BP_SYST 132; BP_DIAS 52; BP_DIAS 73
[2021-04-26] MEDS: oxyCODONE IR 5 MG TABLET PO PRN (21:00)
[2021-04-26] MEDS: ATORVASTATIN CALCIUM 40 MG TABLET. PO SCH (21:00)
[2021-04-26] MEDS: CETIRIZINE HCL 10 MG TABLET. PO SCH (21:00)
[2021-04-27] MEDS ORDERED: traMADol 50 MG TABLET PO ONE (01:15)
[2021-04-27] MEDS: ACETAMINOPHEN 500 MG TABLET PO SCH ×3 (03:23→15:09)
[2021-04-27 05:30] VITALS: BP 155/64
[2021-04-27] MEDS: traMADol 50 MG TABLET PO SCH ×2 (06:12→11:14)
[2021-04-27] MEDS: PANTOPRAZOLE 40 MG TABLET.DR. PO SCH (06:12)
[2021-04-27 06:13] LABS: PROTHROMBIN TIME PATIENT 30.9 SEC (11.7-14.0)
[2021-04-27] MEDS: GABAPENTIN 100 MG CAPSULE. PO SCH (06:13)
[2021-04-27] MEDS: CHOLECALCIFEROL (VITAMIN D3) 1,000 UNIT TABLET PO SCH (08:01)
[2021-04-27] MEDS: rOPINIRole 1 MG TABLET. PO SCH (08:01)
[2021-04-27] MEDS: MELOXICAM 7.5 MG TABLET PO SCH (08:01)
[2021-04-27] MEDS: ISOSORBIDE MONONITRATE ER 30 MG TAB.ER.24H PO SCH (08:02)
[2021-04-27] MEDS: CARVEDILOL 6.25 MG TABLET. PO SCH (08:02)
[2021-04-27] MEDS: oxyCODONE IR 5 MG TABLET PO PRN ×2 (08:02→15:09)
[2021-04-27] MEDS: CHLORTHALIDONE 25 MG TABLET. PO SCH (08:02)
[2021-04-27 08:03] VITALS: BP 155/64
[2021-04-27] MEDS: FERROUS SULFATE 325 MG TABLET. PO SCH (08:03)
[2021-04-27] MEDS: SENNOSIDES/DOCUSATE 8.6/50MG TABLET. PO SCH (08:03)
[2021-04-27] MEDS: LISINOPRIL 20 MG TABLET PO SCH (08:03)
[2021-04-27] MEDS: ASPIRIN ENTERIC COATED 81 MG TABLET.DR. PO SCH (08:05)
[2021-04-27] MEDS ORDERED: OXYC5CAP PO (08:47)
--- NOTE | 2021-04-27 08:51 | SNU/HH DC ---
DISCHARGE WITH HOME HEALTH DISCHARGE INFORMATION: Discharge Date: Apr 27, 2021 Final Diagnosis: Status post right total knee arthroplasty Condition on Discharge: Stable CODE STATUS: Code Status: Full HOME HEALTH: Face to Face: I certify this patient is under my care and that I, or a nurse practitioner or physician's assistant teacher primary working with me, had a face to face encounter that meets the physician face to face encounter requirements with this patient on [04/27/21]. Medical Complications: S/P Joint Replacement Intermediate For: Assess/Skilled Observatio RN For Eval/Treatment: Yes Physical Therapy For: Evalulation/Treatment Pt Meets Homebound Status: Limited distance walking POST DISCHARGE ORDERS: Activity Instructions for Disc: No restrictions, Progressive ambulation Weight Bearing Status after Di: As tolerated Bathing Instructions: Shower-keep dressing dry DIET AFTER DISCHARGE: Regular Wound/Incision Care: Ice to area for comfort, Do not change dressing (Maintain hermann dressing, call if saturated, otherwise when suction machine stops cut tail of dressing and tape over to maintain seal until follow-up visit) FOLLOW-UP: Follow up with: Dr. Miles or Valentine 2 weeks postoperatively Warfarin Follow UP: [facility] to manage warfarin dosage and testing TREATMENT/EQUIPMENT ORDERS: Adaptive Equipment Issued: None CERTIFICATION STATEMENT: Certification Statement: Certification Statement: Based on the above finding, I certify that this patient is confined to the home and needs intermittent mcc care, physical therapy and/or speech therapy, or continues to need occupational therapy.~ This patient is under my care, and I have initiated the establishment of the plan of care.~ This patient will be followed by myself or a community physician who will periodically review the plan of care. Home Meds Reported Medications Pantoprazole Sodium (PANTOPRAZOLE SODIUM ) 40 Mg Tablet.dr, 40 MG PO DAILYAC for GERD, TAB 04/13/21 Nitroglycerin (NITROGLYCERIN SubLingual) 0.4 Mg Tab.subl, 0.4 MG SL PRN Q5MIN PRN for CHEST PAIN, ML 04/13/21 Amlodipine Besylate (AMLODIPINE BESYLATE) 10 Mg Tablet, 10 MG PO DAILY08 for control blood pressure, TAB 04/13/21 Woodward-3/Dha/Epa/Fish Oil (Fish Oil Conc 1,000 mg Softgel) 1,000 Mg Capsule, 1000 MG PO DAILY08 for supplement, CAP 04/13/21 Ropinirole Hcl (ROPINIROLE HCL) 1 Mg Tablet, 2 TAB PO HS for restless leg, TAB 04/13/21 Hydrocodone Bit/Acetaminophen (HYDROCODONE-APAP 5-325 ) 1 Tab Tablet, 1 TAB PO HS PRN for PAIN, TAB 0 Refills 04/13/21 Cholecalciferol (Vitamin D3) (Vitamin D3) 1,250 Mcg Capsule, 2000 UNITS PO DAILY for supplement, CAP 04/13/21 Isosorbide Mononitrate (ISOSORBIDE MONONITRATE ER) 30 Mg Tab.er.24h, 30 MG PO DAILY for treat angina, TAB.SR 04/13/21 Chlorthalidone (CHLORTHALIDONE ) 25 Mg Tablet, 25 MG PO DAILY for DIURETIC, TAB 04/13/21 Acetaminophen (ACETAMINOPHEN) 500 Mg Tablet, 650 MG PO HS for PAIN, #60 TAB 1 Refill 03/11/19 Ubidecarenone (COQ-10) 100 Mg Capsule, 200 MG PO BID for BLOOD THINNER, CAP 03/11/19 Cetirizine Hcl (CETIRIZINE HCL) 10 Mg Tablet, 1 TAB PO HS for SINUS DRAINAGE, #30 TAB 5 Refills 03/11/19 Lisinopril (LISINOPRIL) 20 Mg Tablet, 1 TAB PO BID for B/P, #30 TAB 5 Refills 03/11/19 Carvedilol (CARVEDILOL) 25 Mg Tablet, 6.25 MG PO BIDWMEALS for CARDIAC, TAB 03/11/19 Multivitamin (MULTI-DAY VITAMINS) 1 Each Tablet, 1 TAB PO DAILY, #30 TAB 04/04/15 Ropinirole Hcl (REQUIP) 1 Mg Tablet, 1 MG PO DAILY08 for restless leg, TAB 04/04/15 Aspirin (ASPIR 81) 81 Mg Tablet.dr, 1 TAB PO DAILY, #30 TAB 5 Refills 04/04/15 Rosuvastatin Calcium (CRESTOR) 20 Mg Tablet, 40 MG PO HS for cholesterol control, #30 TAB 0 Refills 04/04/15 Discontinued Reported Medications Albuterol Sulfate (VENTOLIN HFA INHALER) 18 Gm Hfa.aer.ad, 2 PUFF INH PRN Q4- 6HRS PRN for wheeezing, EACH 0 Refills 04/13/21 BRITTA MIELS MD Apr 27, 2021 08:51
--- NOTE | 2021-04-27 09:23 | NUR ---
Pharmacy Warfarin Dosing Note S:Pharmacy consulted to assist with anticoagulation therapy started 04/25/21 with target INR: 1.6 - 2.5 O:CARMEN SÁNCHEZ is a 80 year old M with TKA right LABS: Last INR: 3.1 Last HGB: 10.8 Last HCT: 32.6 Last PLT: - Last dose of 3 mg given on 04/26/21 at 1721 Vitamin K given: N Ongoing Drug Interactions: ASA, meloxicam A:INR of 3.1 is above desired range. Target range for this patient is: 1.6 - 2.5 P: Warfarin dose: Hold Today Bridge Therapy: None Next INR due 05/01/21 (outpatient) Pharmacy anticoagulation service will continue to follow. BROOK HARKINS [facility], 04/27/21 [id number]
[2021-04-27] MEDS ORDERED: WARF3TAB50 PO (10:28)
[2021-04-27 11:22] LABS: HEMATOCRIT 30.8 % (39.0-53.0); HEMOGLOBIN 10.4 g/dL (13.0-17.5)
[2021-04-27] MEDS: IV NORMAL SALINE 1000ML BAG 1,000 ML IV SCH (11:55)
[2021-04-27] MEDS ORDERED: TRAM50TA PO (12:28)
--- NOTE | 2021-04-27 14:52 | NUR ---
SW following. Discussed with RN, [facility] $20 walker and receipt provided to pt. Lisa Cortez RN faxed discharge orders. RN notified.
--- NOTE | 2021-04-27 15:59 | NUR ---
Patient left with family around 1558. Discharge education completed by this nurse, therapy, pharmacy, and the doctor prior to discharge. MAX dressing CDI. IV discontinued this morning without complications. Coumadin given by pharmacy with education performed. Patient not supposed to start his Coumadin at home till Saturday due to his INR of 3.1 today per Beulah in Pharmacy- patient and his are aware. No concerns noted at discharge. Patient left with all his belongings.
--- NOTE | 2021-04-28 18:06 | PATHOLOGY ---
[facility] Accession Number: [id number] . 01 Material submitted: . knee - RIGHT KNEE BONE AND TISSUE. Modifiers: right . 01 Clinical history: . OSTEOARTHRITIS OF RIGHT KNEE RIGHT AND TOTAL KNEE ARTHROPLASTY OA . 02 Diagnosis: Segments of bone and soft tissue, right total knee arthroplasty: - Advanced degenerative arthritis. . (JPM:mml; 04/28/2021) COUNTS INCLUDE 234 BEDS AT THE [facility] 04/28/2021 1532 Local . 02 Electronically signed: . Meir Ordoñez MD, Pathologist NPI- [id number] . 01 Gross description: . Received in formalin labeled "Avelino Stokes, right knee bone and tissue" are multiple portions of chan-white bone and scant attached soft tissue measuring in aggregate 14.1 x 11.0 x 2.7 cm. The bone displays multiple smooth surgical resection margins. The remaining aspects displays multiple concave and convex cartilage covered articular surfaces. The articular surfaces display roughening and eburnation over 75% of the surfaces. Meniscus is identified. Salesperson [employer] tissue is submitted in cassette A1 following decalcification. ([facility]; 04/27/2021) [facility] 04/27/2021 1017 Local . 02 Pathologist provided ICD-10: M17.11 . 02 CPT . 989948, [id number] Specimen Comment: A courtesy copy of this report has been sent to [phone], [phone] Specimen Comment: [id number] Specimen Comment: Report sent to / DR LAU Performed at: 01 [facility] [address], [place], [place] [id number] MD Roberto Paredes MD Phone: [phone] Performed at: 02 [facility] [address], [place] [id number] MD Meir Ordoñez MD Phone: [phone]
--- NOTE | 2021-04-29 20:15 | DS ---
DATE OF DISCHARGE: 04/27/2021 ORTHOPEDIC DISCHARGE SUMMARY PRINCIPAL DIAGNOSIS: Degenerative joint disease of right knee. PROCEDURE: Right total knee arthroplasty. DISPOSITION: Home with home health. Follow up with Dr. Miles in 2 weeks postoperatively. DISPOSITION MEDICATIONS: Include hydrocodone 5/325 one p.o. q. 4 hours p.r.n. pain, warfarin as directed by anticoagulation clinic, resuming preoperative medications aside from holding blood pressure medication in case of any normotensive readings. DISCHARGE INSTRUCTIONS: Activity is weightbearing as tolerated, progressive activity as tolerated. Maintain MAX dressing, call if saturated, otherwise trim tail of dressing when suction machine stops and tape over to maintain seal. BRIEF DESCRIPTION OF HOSPITAL COURSE: The patient underwent an uncomplicated right total knee arthroplasty. Postoperatively, did quite well in terms of physical therapy, ambulation, transfers as well as pain relief. He maintained good medical stability throughout his stay and was discharged to home with home health in stable condition. CHIQUIS DR: Talia TID: [id number]
== END 2021-04-27 16:00 | disposition home health service (06) ==
LOC: SURG 07:59 → 4 SOUTHEST 12:27
PROVIDERS: ADMIT Orthopaedic Surgery; ATTEND Orthopaedic Surgery
DX: M17.11 Unilateral primary osteoarthritis, right knee (principal); I10 Essential (primary) hypertension; E78.00 Pure hypercholesterolemia, unspecified; M54.9 Dorsalgia, unspecified; Z98.890 Other specified postprocedural states; Z87.891 Personal history of nicotine dependence; Z98.1 Arthrodesis status; Z96.651 Presence of right artificial knee joint; Z82.49 Family history of ischemic heart disease and other diseases of the circulatory system
CPT/HCPCS: 27447; 36415; 73560; 85014; 85018; 85610; 85730; 86850; 86900; 86901; 96374; 96376; 97110; 97116; 97150; 97162; 97166; 97530; 97535; A4213; A4930; A6450; A6550; C1713; C1776; G0378; G0379; J0171; J0690; J0780; J1100; J1170; J1885; J2270; J2405; J2704; J2795; J3010; J3370